=== PATIENT | female | born 1940 | race Caucasian/White ===

== ENCOUNTER 2019-04-10 08:29 | Emergency (ER) | payer MEDICARE, OTHER ==
[~2019-04-10] VITALS: Ht 160 cm; Wt 56.1 kg
[~2019-04-10 08:29] MED LIST: EPINEPHRINE 1 MG/ML, 1ML ONE; SODIUM BICARB 8.4%, 50ML SYRINGE ONE
--- NOTE | 2019-04-10 08:40 | NUR ---
THIS IS A 79 YEAR OLD FEMALE WHO WAS BIB BY AMBULANCE FROM [facility], PT WAS FOUND NONRESPONSIVE THIS AM PER EMS PT STARTE WITH GCS OF 11, BS OF 22, PT RECEIVED AMP D50 THEN UP TO 75. PT HAS HX ASTHMA AND DEMENTIA.
--- NOTE | 2019-04-10 08:43 | NUR ---
PT RECTAL TEMP 92.7. WARMING MEASURES IN PLACE. LAB AND RT AT BEDSIDE.
[2019-04-10 08:45] VITALS: BP 101/58
--- NOTE | 2019-04-10 08:45 | NUR ---
DEFIB PADS APPLIED TO PT
--- NOTE | 2019-04-10 08:48 | NUR ---
NON REBREATHER MASK APPLIED
--- NOTE | 2019-04-10 08:55 | NUR ---
BP 52/29. PIV PLACED
--- NOTE | 2019-04-10 08:56 | NUR ---
ER MD LR AT BEDSIDE. PUSHING ATROPINE 1MG
--- NOTE | 2019-04-10 08:58 | NUR ---
BP 65/35 ER ORDERED IV FLUIDS
[2019-04-10] MEDS ORDERED: PLEASE ENTER HEIGHT AND WEIGHT MC SCH (09:00)
[2019-04-10] MEDS ORDERED: SODIUM CHLORIDE FLUSH 10ML SYR IVF ONE (09:00)
[2019-04-10 09:07] LABS: MEAN CORPUSCULAR HEMOGLOBIN 30.6 pg (27.0-34.8); MEAN CORPUSCULAR VOLUME 98.7 fL (80-100); MEAN PLATELET VOLUME 8.5 fL (7.4-10.4); PLATELET COUNT 231 x10^3/uL (130-400); RED BLOOD COUNT 3.98 x10^6/uL (3.82-5.3); RED CELL DISTRIBUTION WIDTH 15.4 % (9.6-15.2)
--- NOTE | 2019-04-10 09:07 | NUR ---
UNABLE TO GET A GOOD O2 SAT AT THIS TIME
--- NOTE | 2019-04-10 09:08 | NUR ---
ATTEMPTING TO GET AN ABG, WITH DIFFICULTY
--- NOTE | 2019-04-10 09:10 | NUR ---
CODE BLUE CALLED
[2019-04-10] MEDS ORDERED: MIDAZOLAM HCL 25 MG in SODIUM CHLORIDE 0.9% 245 ML IV PRN (09:25)
[2019-04-10 09:30] LABS: ANION GAP 26 mmol/L (5-15); CALCIUM 8.9 mg/dL (8.5-10.1); CHLORIDE 109 mmol/L (98-107)
[2019-04-10] MEDS ORDERED: SODIUM BICARB 8.4%, 50ML SYRINGE ONE (09:30)
[2019-04-10] MEDS ORDERED: MIDAZOLAM 1 MG/ML, 5ML ONE (09:30)
[2019-04-10] MEDS ORDERED: ATROPINE SYRINGE 0.1 MG/ML, 10ML ONE (09:30)
[2019-04-10] MEDS ORDERED: NOREPINEPHRINE 1 MG/ML, 4ML ONE (09:30)
[2019-04-10] MEDS ORDERED: SODIUM CHLORIDE 0.9%, 250ML ONE (09:30)
[2019-04-10] MEDS ORDERED: EPINEPHRINE SYRINGE 0.1 MG/ML, 10ML ONE (09:30)
[2019-04-10 09:34] LABS: ALANINE AMINOTRANSFERASE 306 U/L (12-78); ALKALINE PHOSPHATASE 139 U/L (45-117); BILIRUBIN,TOTAL 1.7 mg/dL (0.2-1.0); CREATININE 1.98 mg/dL (0.55-1.02); TOTAL PROTEIN 6.8 g/dL (6.4-8.2); TROPONIN I 0.065 ng/mL (0.000-0.045)
[2019-04-10 09:54] LABS: SALICYLATE LEVEL < 1.7 mg/dL (2.8-20.0)
[2019-04-10 10:06] LABS: MD YES
--- NOTE | 2019-04-10 10:08 | NUR ---
TIME OF CALLED AT 0933. SEE CPR DATA SHEET IN CHART
[2019-04-10 10:14] LABS: <PLATELET ESTIMATE> ADEQUATE; <PLT MORPHOLOGY> NORMAL PLT MORPH; <RBC MORPHOLOGY> NORMAL; BAND#(MANUAL) 1.86 x10^3/uL; BANDS%(MANUAL) 10 % (0-7); LYMPH#(MANUAL) 2.42 x10^3/uL (1-3.4); LYMPHS% (MANUAL) 13 % (22-44); MONOS#(MANUAL) 0.56 x10^3/uL (0.3-2.7); MONOS% (MANUAL) 3 % (2-9); NRBC % (MANUAL) 1 % (0-1); SEG#(MANUAL) 13.76 x10^3/uL (1.8-6.8); SEGS% (MANUAL) 74 % (42-75)
[2019-04-10] MEDS ORDERED: CODE BLUE RESPONSE XX ONE (10:30)
--- NOTE | 2019-04-10 10:33 | NUR ---
[facility] [employer] AND [facility] NOTIFIED WITHIN ONE HOUR OF TIME OF
== END 2019-04-10 09:33 | disposition expired ==
LOC: ED 08:32
DX: E87.1 Hypo-osmolality and hyponatremia (principal); I95.9 Hypotension, unspecified; R04.89 Hemorrhage from other sites in respiratory passages; D72.829 Elevated white blood cell count, unspecified; E87.5 Hyperkalemia; E11.65 Type 2 diabetes mellitus with hyperglycemia; N17.9 Acute kidney failure, unspecified; R79.89 Other specified abnormal findings of blood chemistry
CPT/HCPCS: 31500; 36415; 80053; 80307; 82140; 82962; 84484; 85025; 92950; 93005; 99291; J0171; J0461; J2250; J7050; 94002